=== PATIENT | female | born 1985 | race Two or more races ===

== ENCOUNTER 2022-09-13 15:52 | Emergency (ER) | payer OTHER ==
[~2022-09-13] VITALS: Ht 170.2 cm; Wt 73.5 kg
--- NOTE | 2022-09-13 16:03 | NUR ---
Patient endorsed to [facility].
--- NOTE | 2022-09-13 16:07 | NUR ---
DR HERRING AT BEDSIDE FOR EVAL.
--- NOTE | 2022-09-13 16:07 | NUR ---
Dr Larios at the bedside for MSE.
[2022-09-13 16:36] LABS: MEAN CORPUSCULAR HEMOGLOBIN 28.8 uug (24.7-32.8); MEAN CORPUSCULAR VOLUME 87.2 fL (75.5-95.3)
[2022-09-13 16:38] LABS: *BILIRUBIN,URIN NEGATIVE (NEGATIVE); *CLARITY,URINE CLEAR (CLEAR); *COLOR,URINE YELLOW (YELLOW); *KETONES,URINE NEGATIVE (NEGATIVE); *UROBILINOGEN,URINE 0.2 E.U./dl (NORMAL); LEUKOCYTE ESTERASE ,URINE NEGATIVE (NEGATIVE); NITRITE, URINE NEGATIVE (NEGATIVE); PH,URINE 6.5 (5.0-8.0); UGLUCOSE NEGATIVE (NEGATIVE)
[2022-09-13 16:39] LABS: *BLOOD, URINE NEGATIVE (NEGATIVE)
[2022-09-13 16:41] LABS: CREATININE 0.8 mg/dL (0.6-1.3)
--- NOTE | 2022-09-13 16:41 | NUR ---
Patient resting in bed, informed of plan of care, no s/s of any distress noted at this time.
[2022-09-13 16:42] LABS: HEMATOCRIT 34.1 % (31.2-41.9); PLATELET COUNT (AUTO) 285 K/uL (179-408)
[2022-09-13 16:43] LABS: *URINE HCG, QUAL NEGATIVE (NEGATIVE)
--- NOTE | 2022-09-13 17:19 | NUR ---
Assisted MD at bedside for pelvic exam, specimen sent to lab.
[2022-09-13] MEDS ORDERED: BENZ-13 PO (17:43)
[2022-09-13] MEDS ORDERED: POLY10DR6 EACHEYE (17:43)
== END 2022-09-13 17:59 | disposition home or self-care (01) ==
LOC: ER 15:52 → MERGE 15:52 → ER 17:59
DX: J06.9 Acute upper respiratory infection, unspecified (principal); B97.89 Other viral agents as the cause of diseases classified elsewhere; Z20.822 Contact with and (suspected) exposure to COVID-19
CPT/HCPCS: 36415; 84703; 85025; 87210; A4663